=== PATIENT | male | born 1960 ===

== ENCOUNTER 2023-07-08 12:23 | Outpatient (CLI) | payer SELFPAY ==
--- NOTE | 2023-07-08 13:09 | XRAY Report ---
PROCEDURE: Chest 2V INDICATIONS: COUGH/SHORTNESS OF BREATH TECHNIQUE: 2 views of the chest were acquired. COMPARISON: None. FINDINGS: Surgical changes and devices: None. Lungs and pleura: No pleural effusions or pneumothorax. Lungs are clear. Mediastinum: Mediastinal contours appear normal. Heart size is normal. Bones and chest wall: No suspicious bony lesions. Overlying soft tissues appear unremarkable. IMPRESSION: No acute cardiopulmonary process. Reviewed by: Joselyn Gifford MD on 07/08/2023 1:08 PM [facility] Approved by: Joselyn Gifford MD on 07/08/2023 1:08 PM [facility] Station ID: [id number]
== END 2023-07-08 23:59 | disposition home or self-care (01) ==
LOC: DI.S 12:23
PROVIDERS: ATTEND Physician Assistant Medical
DX: R05.3 Chronic cough (principal); R06.02 Shortness of breath